=== PATIENT | male | born 1960 | race Caucasian/White ===

== ENCOUNTER → 2016-06-27 | Outpatient (CLI) | payer BC ==
[2016-06-27 14:03] LABS: BUN 21 mg/dL (7-18)
[2016-06-27 14:05] LABS: GFR (ESTIMATED) 88 ML/MIN (>60)
== END ==
LOC: LAB 13:08
PROVIDERS: Family Medicine
DX: E10.9 Type 1 diabetes mellitus without complications (principal); I10 Essential (primary) hypertension; E78.2 Mixed hyperlipidemia